=== PATIENT | male | born 1965 | race Caucasian/White ===

== ENCOUNTER 2017-03-05 08:12 | Observation (INO) | payer OTHER ==
[2017-03-05] VITALS (12 sets, daily range): BP systolic 108–137; BP diastolic 66–87; PULSE 68–78; RESP 16–20; TEMP 97.9–99; O2SAT 95–98
[~2017-03-05] VITALS: Ht 180.3 cm; Wt 124.0 kg
--- NOTE | 2017-03-05 08:16 | PD ---
HPI Chief Complaint: syncope Time Seen by Provider: 08:16 Travel History International Travel<30 days: No Contact w/Intl Traveler<30days: No Traveled to known affect area: No History of Present Illness HPI 51-year-old male came to the emergency room brought by EMS after he had a syncopal episode at work today. Patient is currently awake and is able to answer questions. He says that he has not been feeling well for past few days. He thinks he had a head cold and has been taking DayQuil and NyQuil for that. He has felt congested. This morning he was not feeling any better either but decided to go to work because there was a meeting. Prior to the meeting he had a large watery stool. When he was sitting at the meeting he started getting lightheaded and next thing he knows he was on the floor laying down and his coworkers were trying to take care of him. Eventually patient sat out but passed out again. This time they called EMS. When EMS arrived his blood pressure was 95 systolic. He received some fluid prior to coming to the emergency room. His blood pressure upon arrival was in 100s. He shouldn't says that he feels tired and run down. No chest pain or headache. He had one syncopal episode many years ago but otherwise has been healthy. No history of nausea vomiting. No blood in the stool. He has been having cold sweats during this past few days of his illness. Patient has history of hypertension and took his medications in the morning prior to going to work. PFSH Past Medical History Narrative Medical List of his past medical, surgical, social and family history is reviewed from the nursing note. Social History Tobacco Use: Yes Allergies-Medications (Allergen,Severity, Reaction): Coded Allergies: Sulfa (Sulfonamide Antibiotics) (Verified Allergy, Unknown, 03/05/17) cephalexin (Verified Allergy, Unknown, 03/05/17) Comments List of his allergies reviewed from the nursing note. Reported Meds & Prescriptions Reported Meds & Active Scripts Active Reported Triamterene-Hydrochlorothiazide 37.5-25 Mg Cap 1 Cap PO DAILY Lisinopril 40 Mg Tab 40 Mg PO BID Narrative Medication List of his home medications reviewed from the nursing note. Review of Systems Except as stated in HPI: all other systems reviewed are Neg Physical Exam Narrative GENERAL: Awake, alert, mild distress, obese SKIN: Focused skin assessment warm/dry. HEAD: Atraumatic. Normocephalic. EYES: Pupils equal and round. No scleral icterus. No injection or drainage. ENT: No nasal bleeding or discharge. Mucous membranes pink and moist. NECK: Trachea midline. No JVD. CARDIOVASCULAR: Regular rate and rhythm. No murmur appreciated. RESPIRATORY: No accessory muscle use. Clear to auscultation. Breath sounds equal bilaterally. GASTROINTESTINAL: Abdomen soft, non-tender, nondistended. Hepatic and splenic margins not palpable. MUSCULOSKELETAL: No obvious deformities. No clubbing. No cyanosis. No edema. NEUROLOGICAL: Awake and alert. No obvious cranial nerve deficits. Motor grossly within normal limits. Normal speech. PSYCHIATRIC: Appropriate mood and affect; insight and judgment normal. Data Data Last Documented VS Orders Orders Electrocardiogram (03/05/17 08:38) Basic Metabolic Panel (Bmp) (03/05/17 08:38) Ckmb (Isoenzyme) Profile (03/05/17 08:38) Complete Blood Count With Diff (03/05/17 08:38) Magnesium (Mg) (03/05/17 08:38) Prothrombin Time / Inr (Pt) (03/05/17 08:38) Act Partial Throm Time (Ptt) (03/05/17 08:38) Troponin I (03/05/17 08:38) Chest, Single Ap (03/05/17 08:38) Ecg Monitoring (03/05/17 08:38) Bilateral Bp Monitoring (03/05/17 08:38) Iv Access Insert/Monitor (03/05/17 08:38) Oximetry (03/05/17 08:38) Oxygen Administration (03/05/17 08:38) Sodium Chloride 0.9% Flush (Ns Flush) (03/05/17 08:45) Sodium Chlor 0.9% 1000 Ml Inj (Ns 1000 M (03/05/17 08:45) Orthostatic Vital Signs (03/05/17 08:38) Ct Brain W/O Iv Contrast(Rout) (03/05/17 ) Urinalysis - C+S If Indicated (03/05/17 08:38) D-Dimer (03/05/17 08:46) Blood Culture (03/05/17 09:56) Lactic Acid (03/05/17 09:56) Levofloxacin 500 Mg Premix Inj (Levaquin (03/05/17 10:00) Admit Order (Ed Use Only) (03/05/17 10:21) Labs Laboratory Tests Test 03/05/17 08:50 03/05/17 09:50 03/05/17 10:10 White Blood Count 13.0 TH/MM3 Red Blood Count 4.30 MIL/MM3 Hemoglobin 14.3 GM/DL Hematocrit 41.9 % Mean Corpuscular Volume 97.4 FL Mean Corpuscular Hemoglobin 33.4 PG Mean Corpuscular Hemoglobin Concent 34.3 % Red Cell Distribution Width 13.0 % Platelet Count 132 TH/MM3 Mean Platelet Volume 10.5 FL Neutrophils (%) (Auto) 79.3 % Lymphocytes (%) (Auto) 13.4 % Monocytes (%) (Auto) 6.7 % Eosinophils (%) (Auto) 0.4 % Basophils (%) (Auto) 0.2 % Neutrophils # (Auto) 10.3 TH/MM3 Lymphocytes # (Auto) 1.7 TH/MM3 Monocytes # (Auto) 0.9 TH/MM3 Eosinophils # (Auto) 0.0 TH/MM3 Basophils # (Auto) 0.0 TH/MM3 CBC Comment DIFF FINAL Differential Comment Prothrombin Time 11.4 SEC Prothromb Time International Ratio 1.0 RATIO Activated Partial Thromboplast Time 22.9 SEC D-Dimer Quantitative (PE/DVT) 0.29 MG/L FEU Blood Urea Nitrogen 16 MG/DL Creatinine 1.45 MG/DL Random Glucose 117 MG/DL Calcium Level 10.1 MG/DL Magnesium Level 1.8 MG/DL Sodium Level 138 MEQ/L Potassium Level 3.8 MEQ/L Chloride Level 104 MEQ/L Carbon Dioxide Level 25.8 MEQ/L Anion Gap 8 MEQ/L Estimat Glomerular Filtration Rate 51 ML/MIN Total Creatine Kinase 74 U/L Troponin I LESS THAN 0.02 NG/ML Urine Color YELLOW Urine Turbidity CLEAR Urine pH 6.5 Urine Specific Muddy 1.021 Urine Protein 30 mg/dL Urine Glucose (UA) NEG mg/dL Urine Ketones NEG mg/dL Urine Occult Blood NEG Urine Nitrite NEG Urine Bilirubin NEG Urine Urobilinogen LESS THAN 2.0 MG/DL Urine Leukocyte Esterase NEG Urine RBC 1 /hpf Urine WBC 1 /hpf Microscopic Urinalysis Comment CULT NOT INDICATED Lactic Acid Level 1.1 mmol/L MDM Medical Decision Making Medical Screen Exam Complete: Yes Emergency Medical Condition: Yes Medical Record Reviewed: Yes Interpretation(s) Twelve-lead EKG was reviewed by me. Normal sinus rhythm, normal axis, questionable type II Brugada syndrome. Heart rate of 67 bpm. Differential Diagnosis Orthostatic hypotension and syncope, Brugada syndrome, hypovolemic syncope Narrative Course 10:13 AM I discussed the case with Dr. Rodgers earlier after looking at the EKG. My concern was type II Brugada syndrome. However hearing the history he was not concerned from Brugada standpoint. He thought the symptoms were related to his preceding events which were mainly the infectious disease. He said he would be happy to consult if an order is put. Meanwhile blood test results came back and patient has some leukocytosis. Chest x-ray shows a developing infiltrate. Head CT was negative. I have given him a dose of Levaquin and IV fluid bolus. I discussed the case with the resident and they have accepted under the service. I discussed it with the patient and he is okay with admission at this point. Procedures EKG Prior to Arrival: Yes Physician Communication Physician Communication Dr. Rodgers Diagnosis Primary Impression: Syncope Qualified Codes: R55 - Syncope and collapse Additional Impressions: Pneumonia Qualified Codes: J18.1 - Lobar pneumonia, unspecified organism Dehydration questionable type II Brugada syndrome Admitting Information Admitting Physician Requests: Admit Beth Rose MD Mar 05, 2017 08:16
[2017-03-05] MEDS ORDERED: LISI40TA PO (08:33)
[2017-03-05] MEDS ORDERED: TRIA37.53 PO (08:34)
[2017-03-05] MEDS ORDERED: SODIUM CHLOR 0.9% 1000 ML INJ 1,000 ML IV ONE (08:45)
[2017-03-05] MEDS ORDERED: SODIUM CHLORIDE 0.9% FLUSH 10 ML FLUSH IVF PRN (08:45)
[2017-03-05 09:14] LABS: AUTOMATED NEUTROPHIL # 10.3 TH/MM3 (1.8-7.7); BASOPHIL % 0.2 % (0.0-2.0); EOSINOPHIL % 0.4 % (0.0-4.0); HEMATOCRIT 41.9 % (39.0-51.0); HEMO FLAGS DIFF FINAL; LYMPH % 13.4 % (9.0-44.0); LYMPHOCYTE # 1.7 TH/MM3 (1.0-4.8); MEAN CELL VOLUME 97.4 FL (80.0-100.0); MEAN CORPUSCULAR HEMOGLOBIN 33.4 PG (27.0-34.0); MEAN CORPUSCULAR HGB CONC 34.3 % (32.0-36.0); MONO % 6.7 % (0.0-8.0); NEUT % 79.3 % (16.0-70.0); PLATELET COUNT 132 TH/MM3 (150-450)
[2017-03-05 09:30] LABS: APTT (PATIENT) 22.9 SEC (24.3-30.1); PROTHROMBIN TIME - PATIENT 11.4 SEC (9.8-11.6)
[2017-03-05 09:35] LABS: ANION GAP 8 MEQ/L (5-15); BICARBONATE 25.8 MEQ/L (21.0-32.0); BLOOD UREA NITROGEN 16 MG/DL (7-18); CHLORIDE 104 MEQ/L (98-107); GLOMERULAR FILTRATION RATE 51 ML/MIN (>89); MAGNESIUM 1.8 MG/DL (1.5-2.5); POTASSIUM 3.8 MEQ/L (3.5-5.1); SODIUM (NA) 138 MEQ/L (136-145)
--- NOTE | 2017-03-05 09:44 | RADRPT ---
EXAM DATE/TIME: 03/05/2017 09:25 [facility] COMPARISON: No previous studies available for comparison. INDICATIONS : Multiple syncopal episodes today. RADIATION DOSE: 36.99 CTDIvol (mGy) MEDICAL HISTORY : Hypertension. Renal cell carcinoma. SURGICAL HISTORY : None. ENCOUNTER: Initial ACUITY: 1 day PAIN SCALE: 0/10 LOCATION: cranial TECHNIQUE: Multiple contiguous axial images were obtained of the head. Using automated exposure control and adj ustment of the mA and/or kV according to patient size, radiation dose was kept as low as reasonably a chievable to obtain optimal diagnostic quality images. DICOM format image data is available electro nically for review and comparison. FINDINGS: CEREBRUM: The ventricles are normal for age. No evidence of midline shift, mass lesion, hemorrhage or acute in farction. No extra-axial fluid collections are seen. POSTERIOR FOSSA: The cerebellum and brainstem are intact. The 4th ventricle is midline. The cerebellopontine angle i s unremarkable. EXTRACRANIAL: The visualized portion of the orbits is intact. SKULL: The calvaria is intact. No evidence of skull fracture. CONCLUSION: Normal examination. Yosef Aponte MD on March 05, 2017 at 9:42 Board Certified Radiologist. This report was verified electronically.
[2017-03-05 09:45] LABS: CREATINE KINASE 74 U/L (39-308)
--- NOTE | 2017-03-05 09:46 | RADRPT ---
EXAM DATE/TIME: 03/05/2017 09:02 [facility] COMPARISON: No previous studies available for comparison. INDICATIONS : Syncope. Cough. MEDICAL HISTORY : Hypertension. Smoker. Renal carcinoma. SURGICAL HISTORY : Nephrectomy, left. ENCOUNTER: Initial ACUITY: 3 days PAIN SCORE: 0/10 LOCATION: Bilateral chest FINDINGS: Minimal patchy opacities in the medial right lower lung zone and linear opacities at the left lung ba se. Cardiomediastinal contours are within normal limits. Bony thorax is intact. CONCLUSION: 1. Subtle patchy airspace disease in the medial right lower lung zone may reflect aspiration or devel oping pneumonia in the proper clinical setting. 2. Left lower lobe atelectasis. Jon Damon MD on March 05, 2017 at 9:35 Board Certified Radiologist. This report was verified electronically.
[2017-03-05] MEDS ORDERED: LEVOFLOXACIN 500 MG PREMIX INJ 100 ML IV ONE (10:00)
[2017-03-05 10:26] LABS: BLOOD, URINE NEG (NEG); COMMENT (UR) CULT NOT INDICATED; CULTURE IF INDICATED CULT NOT INDICATED; GLUCOSE,URINE NEG (NEG); KETONE, URINE NEG (NEG); NITRITE,URINE NEG (NEG); PH, URINE 6.5 (5.0-8.5); URINE COLOR YELLOW (YELLW/STRAW)
[2017-03-05] MEDS ORDERED: MAGNESIUM HYDROXIDE SUSP 30 ML CUP PO PRN (10:45)
[2017-03-05] MEDS ORDERED: ACETAMINOPHEN 325 MG TAB PO PRN (10:45)
[2017-03-05] MEDS ORDERED: SODIUM CHLORIDE 0.9% FLUSH 10 ML FLUSH IV FLUSH PRN (10:45)
[2017-03-05] MEDS ORDERED: cloNIDine HCL 0.2 MG TAB PO PRN (10:45)
[2017-03-05] MEDS ORDERED: NALOXONE HCL 0.4 MG/ML AMP IV PUSH PRN (10:45)
[2017-03-05] MEDS ORDERED: ONDANSETRON HCL 4 MG/2 ML VIAL IVP PRN (10:45)
[2017-03-05] MEDS ORDERED: TEMAZEPAM 15 MG CAP PO PRN (10:45)
[2017-03-05] MEDS: 1/2 NS + KCL 20 MEQ INJ 1,000 ML IV SCH (11:48)
[2017-03-05 15:40] LABS: C. DIFF EPI 027 PRESUMPTIVE NEGATIVE (NEGATIVE)
--- NOTE | 2017-03-05 16:46 | HHI.HP ---
HPI Service [facility] Hospitalists Primary Care Physician Dr. Radha German Admission Diagnosis syncope, dehydration, pneumonia Chief Complaint: Syncope Travel History International Travel<30 Days: No Contact w/Intl Traveler <30 Da: No Traveled to Known Affected Are: No History of Present Illness Mr. Carroll is a pleasant 51 y/o WM with HTN, tobacco use, CKD stage 3 and hx of RCC. He was brought to the ED at [facility] on 03/05 after two episodes of syncope this morning. Pt states that around 3 days ago he started having symptoms of a sore throat and sinus congestion and subjective fevers/chills. He started using OTC NyQuil. He took a dose of the NyQuil Sunday evening, Sunday evening and Sunday evening and then this morning he took a dose of DayQuil. Pt also has been using his Flonase. He states that he has not been eating and drinking as well as he normally does since he has been sick. This morning he had two bouts of diarrhea. He went to work this morning for a meeting and while sitting in the chair he started to feel like he was going to pass out, with lightheadedness , tunneled vision, ringing in his ears and feeling "tingly" all over. He did syncopize and when he awake his co-workers were surrounding him. [facility] had been called and when they arrived they tried to get him up to the chair and he again felt the same symptoms and had another syncopal episode. On the scene he was reportedly hypotensive with systolic BP in the 90's. He was given IVF enroute to the hospital and in the ED. Pts labs in the ED noted a mild leukocytosis with WBC count 13,000. His Creatinine was slightly higher than baseline at 1.45 and his outpt labs indicate his Cr has been around 1.3. He had a Head CT which was negative and a CXR in the ED which noted subtle patchy airspace disease in the medial right lower lung zone may reflect aspiration or developing pneumonia in the proper clinical setting and left lower lobe atelectasis. Pt denies any significant cough or chest congestion. He states that most of his symptoms are head/nasal congestion. Pt was given a dose of IV Levaquin in the ED and he was continued on IVF. In the ED his EKG was interpreted as possible type II Brugada syndrome. Dr. Rodgers was called by the ED physician and according to her notes, he thought the symptoms were related to the patients preceding events. Review of Systems Constitutional: COMPLAINS OF: Dizziness, Change in appetite Ears, nose, mouth, throat: COMPLAINS OF: Nasal discharge, Throat pain, Running Nose, Sinus Pain Respiratory: DENIES: Cough, Shortness of breath Cardiovascular: DENIES: Chest pain, Palpitations, Dyspnea on Exertion, Lower Extremity Edema Gastrointestinal: COMPLAINS OF: Diarrhea, DENIES: Abdominal pain, Nausea, Vomiting Genitourinary: DENIES: Hematuria, Dysuria Musculoskeletal: DENIES: Back pain, Neck pain Integumentary: DENIES: Rash Neurologic: DENIES: Headache Psychiatric: DENIES: Confusion Past Family Social History Past Medical History CKD, stage 3 Hx of diverticulitis, multiple episodes HTN Hyperlipidemia Obesity Tobacco use Hx of RCC in 2006 Past Surgical History Left nephrectomy in 2006 Knee surgery Reported Medications -Triamterene-Hydrochlorothiazide 37.5-25 Mg PO DAILY -Lisinopril 40 Mg PO BID Allergies: Coded Allergies: Sulfa (Sulfonamide Antibiotics) (Verified Allergy, Unknown, 03/05/17) cephalexin (Verified Allergy, Unknown, 03/05/17) Family History Mother from suspected GI malignancy and sepsis Father is still living Social History (+)Tobacco use, smokes 3/4 ppd for 25+ years Denies any regular alcohol use 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, 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 SKIN: No rashes, ecchymoses or lesions. Cool and dry. HEENT: Atraumatic. Normocephalic. No temporal or scalp tenderness. No scleral icterus. Mild throat erythema. Uvula midline. Airway patent. NECK: Trachea midline, supple, nontender. CARDIO: Regular. RESP: CTA bilaterally. No wheezes, rales, or rhonchi. ABD: +BS, soft, non-tender, nondistended. EXT: Extremities without clubbing, cyanosis, or edema. NEURO: Awake and alert. Motor and sensory grossly within normal limits. Normal speech. Laboratory Laboratory Tests Test 03/05/17 08:50 03/05/17 09:50 03/05/17 10:10 03/05/17 13:39 White Blood Count 13.0 Red Blood Count 4.30 Hemoglobin 14.3 Hematocrit 41.9 Mean Corpuscular Volume 97.4 Mean Corpuscular Hemoglobin 33.4 Mean Corpuscular Hemoglobin Concent 34.3 Red Cell Distribution Width 13.0 Platelet Count 132 Mean Platelet Volume 10.5 Neutrophils (%) (Auto) 79.3 Lymphocytes (%) (Auto) 13.4 Monocytes (%) (Auto) 6.7 Eosinophils (%) (Auto) 0.4 Basophils (%) (Auto) 0.2 Neutrophils # (Auto) 10.3 Lymphocytes # (Auto) 1.7 Monocytes # (Auto) 0.9 Eosinophils # (Auto) 0.0 Basophils # (Auto) 0.0 CBC Comment DIFF FINAL Differential Comment Prothrombin Time 11.4 Prothromb Time International Ratio 1.0 Activated Partial Thromboplast Time 22.9 D-Dimer Quantitative (PE/DVT) 0.29 Blood Urea Nitrogen 16 Creatinine 1.45 Random Glucose 117 Calcium Level 10.1 Magnesium Level 1.8 Sodium Level 138 Potassium Level 3.8 Chloride Level 104 Carbon Dioxide Level 25.8 Anion Gap 8 Estimat Glomerular Filtration Rate 51 Total Creatine Kinase 74 Troponin I LESS THAN 0.02 Urine Color YELLOW Urine Turbidity CLEAR Urine pH 6.5 Urine Specific Orient 1.021 Urine Protein 30 Urine Glucose (UA) NEG Urine Ketones NEG Urine Occult Blood NEG Urine Nitrite NEG Urine Bilirubin NEG Urine Urobilinogen LESS THAN 2.0 Urine Leukocyte Esterase NEG Urine RBC 1 Urine WBC 1 Microscopic Urinalysis Comment CULT NOT INDICATED Lactic Acid Level 1.1 Stool C. difficile Toxin (PCR) NEGATIVE Stl C. difficile Toxin Epiderm 027 PRESUMPTIVE NEGATIVE Date/Time Source Procedure Growth Status 03/05/17 10:10 Blood Peripheral Aerobic Blood Culture Pending Received 03/05/17 10:10 Blood Peripheral Anaerobic Blood Culture Pending Received 03/05/17 13:39 Stool Stool Cyclospora Exam - Final NO CYCLOSPORA SEEN Resulted 03/05/17 13:39 Stool Stool Cryptosporidium Exam Pending Resulted 03/05/17 13:39 Stool Stool Stool Pus (NIYAH) Pending Resulted 03/05/17 13:39 Stool Stool Giardia Antigen (NIYAH) Pending Resulted 03/05/17 13:39 Stool Stool Stool Occult Blood (NIYAH) - Final HEMOCCULT NEGATIVE Resulted Result Diagram: 03/05/17 0850 03/05/17 0850 Imaging Last Impressions Chest X-Ray 03/05/17 0838 Signed Impressions: Service Date/Time: Sunday, March 05, 2017 09:02 - CONCLUSION: 1. Subtle patchy airspace disease in the medial right lower lung zone may reflect aspiration or developing pneumonia in the proper clinical setting. 2. Left lower lobe atelectasis. Jon Damon MD Head CT 03/05/17 0000 Signed Impressions: Service Date/Time: Sunday, March 05, 2017 09:25 - CONCLUSION: Normal examination. Yosef Aponte MD Septic Shock Reassessment Heart: Regular rate and rhythm Lungs: Clear Skin: Warm Caprini VTE Risk Assessment Caprini VTE Risk Assessment: No/Low Risk (score <= 1) Caprini Risk Assessment Model Point Value = 1 Point Value = 2 Point Value = 3 Point Value = 5 Age 41-60 Minor surgery BMI > 25 kg/m2 Swollen legs Varicose veins or History of unexplained or recurrent spontaneous Oral contraceptives or hormone replacement Sepsis (< 1 month) Serious lung disease, including pneumonia (< 1 month) Abnormal pulmonary function Acute myocardial infarction Congestive heart failure (< 1 month) History of inflammatory bowel disease Medical patient at bed rest Age 61-74 Arthroscopic surgery Major open surgery (> 45 min) Laparoscopic surgery (> 45 min) Malignancy Confined to bed (> 72 hours) Immobilizing plaster cast Central venous access Age >= 75 History of VTE Family history of VTE Factor V Leiden Prothrombin [id number] Lupus anticoagulant Anticardiolipin antibodies Elevated serum homocysteine Heparin-induced thrombocytopenia Other congenital or acquired thrombophilia Stroke (< 1 month) Elective arthroplasty Hip, pelvis, or leg fracture Acute spinal cord injury (< 1 month) Prophylaxis Regimen Total Risk Factor Score Risk Level Prophylaxis Regimen 0-1 Low Early ambulation 2 Moderate Order ONE of the following: *Sequential Compression Device (SCD) *Heparin 5000 units SQ BID 3-4 Higher Order ONE of the following medications: *Heparin 5000 units SQ TID *Enoxaparin/Lovenox 40 mg SQ daily (WT < 150 kg, CrCl > 30 mL/min) *Enoxaparin/Lovenox 30 mg SQ daily (WT < 150 kg, CrCl > 10-29 mL/min) *Enoxaparin/Lovenox 30 mg SQ BID (WT < 150 kg, CrCl > 30 mL/min) AND/OR *Sequential Compression Device (SCD) 5 or more Highest Order ONE of the following medications: *Heparin 5000 units SQ TID (Preferred with Epidurals) *Enoxaparin/Lovenox 40 mg SQ daily (WT < 150 kg, CrCl > 30 mL/min) *Enoxaparin/Lovenox 30 mg SQ daily (WT < 150 kg, CrCl > 10-29 mL/min) *Enoxaparin/Lovenox 30 mg SQ BID (WT < 150 kg, CrCl > 30 mL/min) AND *Sequential Compression Device (SCD) Assessment and Plan Problem List: (1) Syncope ICD Codes: R55 - Syncope and collapse Status: Acute Plan: - Pt is a 51 y/o male with HTN, tobacco use, CKD, stage 3 and hx of RCC. - He was brought to the ED at [facility] on 03/05 after two episodes of syncope this morning. - Around 3 days ago he started having symptoms of a sore throat and sinus congestion and subjective fevers/chills. He started using OTC NyQuil each evening and then this morning he took a dose of DayQuil. He has not been eating and drinking as well as he normally does and this morning he had two bouts of diarrhea. - This morning while in a meeting at work he had lightheadedness, tunneled vision, ringing in his ears and feeling "tingly" all over and then had syncope. There was no reported seizure activity. [facility] had been called and when they arrived they tried to get him up to the chair and he again felt the same symptoms and had another syncopal episode. - On the scene he was reportedly hypotensive with systolic BP in the 90's. He was given IVF en route to the hospital and in the ED. - Labs in the ED noted a mild leukocytosis with WBC count 13,000. His Creatinine was slightly higher than baseline at 1.45 and his outpt labs indicate his Cr has been around 1.3. - He had a few episodes of diarrhea this morning, stool for C. diff are negative. - Head CT which was negative - CXR --> subtle patchy airspace disease in the medial right lower lung zone may reflect aspiration or developing pneumonia in the proper clinical setting and left lower lobe atelectasis. - Pt was given a dose of IV Levaquin in the ED and he was continued on IVF. - Pts syncope was likely vasovagal related to his acute illness and dehydration but in the ED his EKG was interpreted as possible type II Brugada syndrome. We will consult Dr. Rodgers to r/o possible Brugada syndrome as a cause for his syncope - Cont. IVF and supportive care - Pt does not have any increased cough or sputum production - Flonase - Encourage oral intake - DVT prophylaxis with SCDs (2) Dehydration ICD Codes: E86.0 - Dehydration Status: Acute Plan: - See above. (3) Acute worsening of stage 3 chronic kidney disease ICD Codes: N18.3 - Chronic kidney disease, stage 3 (moderate) Status: Acute Plan: - Likely secondary to dehydration - Repeat labs in AM - Encourage oral intake (4) HTN (hypertension) ICD Codes: I10 - Essential (primary) hypertension Status: Chronic Plan: - Home meds held due to hypotension and JAMESON/CKD - Monitor - Clonidine PRN (5) Tobacco abuse ICD Codes: Z72.0 - Tobacco use Status: Chronic Plan: - Pt declines nicotine patch - Discussed tobacco cessation Assessment and Plan Patient examined. Assessment and plan formulated with Amirah Sosa PA-C. I agree with the above. Problem Qualifiers (1) Syncope: Qualified Codes: R55 - Syncope and collapse (2) HTN (hypertension): Qualified Codes: I10 - Essential (primary) hypertension Amirah Sosa Mar 05, 2017 16:46 Gavin Chi DO Mar 10, 2017 00:07
[2017-03-05] MEDS ORDERED: FLUTICASONE PROPIONATE 50 MCG/ACT 16 GM NASAL SPRAY NASAL ONE (17:15)
[2017-03-05] MEDS ORDERED: diphenhydrAMINE HCL 25 MG CAP PO PRN (18:00)
[2017-03-05] MEDS: FLUTICASONE PROPIONATE 50 MCG/ACT 16 GM NASAL SPRAY EACH NARE SCH (18:37)
[2017-03-05] MEDS: SODIUM CHLORIDE 0.9% FLUSH 10 ML FLUSH IV FLUSH SCH (21:00)
[2017-03-06] VITALS (8 sets, daily range): BP systolic 130–144; BP diastolic 68–84; PULSE 65–75; RESP 18–21; TEMP 97.9–98.6; O2SAT 95–97
[2017-03-06] MEDS: 1/2 NS + KCL 20 MEQ INJ 1,000 ML IV SCH ×3 (04:29→16:45)
[2017-03-06 04:36] LABS: AUTOMATED NEUTROPHIL # 7.5 TH/MM3 (1.8-7.7); BASOPHIL % 0.3 % (0.0-2.0); EOSINOPHIL # 0.1 TH/MM3 (0-0.4); EOSINOPHIL % 1.1 % (0.0-4.0); HEMATOCRIT 40.8 % (39.0-51.0); HEMO FLAGS DIFF FINAL; LYMPHOCYTE # 1.7 TH/MM3 (1.0-4.8); MEAN CELL VOLUME 96.6 FL (80.0-100.0); MEAN CORPUSCULAR HEMOGLOBIN 33.5 PG (27.0-34.0); MEAN CORPUSCULAR HGB CONC 34.7 % (32.0-36.0); MONO % 9.8 % (0.0-8.0); NEUT % 72.8 % (16.0-70.0); PLATELET COUNT 145 TH/MM3 (150-450); RED BLOOD COUNT 4.22 MIL/MM3 (4.50-5.90); RED CELL DISTRIBUTION WIDTH 12.9 % (11.6-17.2); WHITE BLOOD COUNT 10.4 TH/MM3 (4.0-11.0)
[2017-03-06 04:45] LABS: MAGNESIUM 1.7 MG/DL (1.5-2.5); POTASSIUM 4.1 MEQ/L (3.5-5.1)
[2017-03-06] MEDS: SODIUM CHLORIDE 0.9% FLUSH 10 ML FLUSH IV FLUSH SCH (09:00)
[2017-03-06] MEDS: FLUTICASONE PROPIONATE 50 MCG/ACT 16 GM NASAL SPRAY EACH NARE SCH (09:08)
[2017-03-06] MEDS ORDERED: INFLUENZA VIRUS VACCINE (QUADRIVALENT) 0.5 ML SYR IM ONE (10:00)
--- NOTE | 2017-03-06 11:54 | EKG ---
Date Performed: 03/05/2017 Time Performed: 08:40:35 PTAGE: 51 years EKG: Normal Sinus rhythm Anteroseptal ST elevation, cannot exclude brugada syndrome Slight nonspecific ST elevation laterally Clinical correlation needed. NO PREVIOUS TRACING DOCTOR: Jaleel Keene Interpretating Date/Time 03/06/2017 11:52:59
--- NOTE | 2017-03-06 16:05 | HHI.PR ---
Subjective Remarks Pt feeling much better today and is anxious to go home Pt was seen by Dr. Rodgers who did not feel that the pt has Brugada Syndrome and has cleared the patient for discharge. Objective Vitals Vital Signs Date Time Temp Pulse Resp B/P (MAP) Pulse Ox O2 Delivery O2 Flow Rate FiO2 03/06/17 15:32 98.6 75 20 130/68 (88) 97 03/06/17 12:12 70 03/06/17 08:10 65 03/06/17 07:56 98.6 70 21 144/84 (104) 96 03/06/17 04:09 97.9 75 18 134/81 (98) 96 03/06/17 04:00 66 03/06/17 01:01 66 03/06/17 00:57 98.4 74 18 134/82 (99) 95 03/05/17 20:00 78 03/05/17 19:43 97.9 76 16 135/78 (97) 95 03/05/17 16:19 68 03/05/17 16:18 98.4 69 20 137/87 (104) 96 Result Diagram: 03/06/17 0352 03/06/17 0352 Other Results Laboratory Tests Test 03/05/17 08:50 03/05/17 09:50 03/05/17 10:10 03/05/17 13:39 White Blood Count 13.0 TH/MM3 Red Blood Count 4.30 MIL/MM3 Hemoglobin 14.3 GM/DL Hematocrit 41.9 % Mean Corpuscular Volume 97.4 FL Mean Corpuscular Hemoglobin 33.4 PG Mean Corpuscular Hemoglobin Concent 34.3 % Red Cell Distribution Width 13.0 % Platelet Count 132 TH/MM3 Mean Platelet Volume 10.5 FL Neutrophils (%) (Auto) 79.3 % Lymphocytes (%) (Auto) 13.4 % Monocytes (%) (Auto) 6.7 % Eosinophils (%) (Auto) 0.4 % Basophils (%) (Auto) 0.2 % Neutrophils # (Auto) 10.3 TH/MM3 Lymphocytes # (Auto) 1.7 TH/MM3 Monocytes # (Auto) 0.9 TH/MM3 Eosinophils # (Auto) 0.0 TH/MM3 Basophils # (Auto) 0.0 TH/MM3 CBC Comment DIFF FINAL Differential Comment Prothrombin Time 11.4 SEC Prothromb Time International Ratio 1.0 RATIO Activated Partial Thromboplast Time 22.9 SEC D-Dimer Quantitative (PE/DVT) 0.29 MG/L FEU Blood Urea Nitrogen 16 MG/DL Creatinine 1.45 MG/DL Random Glucose 117 MG/DL Calcium Level 10.1 MG/DL Magnesium Level 1.8 MG/DL Sodium Level 138 MEQ/L Potassium Level 3.8 MEQ/L Chloride Level 104 MEQ/L Carbon Dioxide Level 25.8 MEQ/L Anion Gap 8 MEQ/L Estimat Glomerular Filtration Rate 51 ML/MIN Total Creatine Kinase 74 U/L Troponin I LESS THAN 0.02 NG/ML Urine Color YELLOW Urine Turbidity CLEAR Urine pH 6.5 Urine Specific [place] 1.021 Urine Protein 30 mg/dL Urine Glucose (UA) NEG mg/dL Urine Ketones NEG mg/dL Urine Occult Blood NEG Urine Nitrite NEG Urine Bilirubin NEG Urine Urobilinogen LESS THAN 2.0 MG/DL Urine Leukocyte Esterase NEG Urine RBC 1 /hpf Urine WBC 1 /hpf Microscopic Urinalysis Comment CULT NOT INDICATED Lactic Acid Level 1.1 mmol/L Stool C. difficile Toxin (PCR) NEGATIVE Stl C. difficile Toxin Epiderm 027 PRESUMPTIVE NEGATIVE Test 03/06/17 03:52 White Blood Count 10.4 TH/MM3 Red Blood Count 4.22 MIL/MM3 Hemoglobin 14.1 GM/DL Hematocrit 40.8 % Mean Corpuscular Volume 96.6 FL Mean Corpuscular Hemoglobin 33.5 PG Mean Corpuscular Hemoglobin Concent 34.7 % Red Cell Distribution Width 12.9 % Platelet Count 145 TH/MM3 Mean Platelet Volume 9.9 FL Neutrophils (%) (Auto) 72.8 % Lymphocytes (%) (Auto) 16.0 % Monocytes (%) (Auto) 9.8 % Eosinophils (%) (Auto) 1.1 % Basophils (%) (Auto) 0.3 % Neutrophils # (Auto) 7.5 TH/MM3 Lymphocytes # (Auto) 1.7 TH/MM3 Monocytes # (Auto) 1.0 TH/MM3 Eosinophils # (Auto) 0.1 TH/MM3 Basophils # (Auto) 0.0 TH/MM3 CBC Comment DIFF FINAL Differential Comment Blood Urea Nitrogen 18 MG/DL Creatinine 1.30 MG/DL Random Glucose 102 MG/DL Calcium Level 9.9 MG/DL Magnesium Level 1.7 MG/DL Sodium Level 139 MEQ/L Potassium Level 4.1 MEQ/L Chloride Level 106 MEQ/L Carbon Dioxide Level 27.0 MEQ/L Anion Gap 6 MEQ/L Estimat Glomerular Filtration Rate 58 ML/MIN Imaging Last Impressions Chest X-Ray 03/05/17 0838 Signed Impressions: Service Date/Time: Sunday, March 05, 2017 09:02 - CONCLUSION: 1. Subtle patchy airspace disease in the medial right lower lung zone may reflect aspiration or developing pneumonia in the proper clinical setting. 2. Left lower lobe atelectasis. Jon Damon MD Head CT 03/05/17 0000 Signed Impressions: Service Date/Time: Sunday, March 05, 2017 09:25 - CONCLUSION: Normal examination. Yosef Aponte MD Objective Remarks General: NAD, AAOx3 Chest: CTA Cardiac: Regular Abd: +BS, soft ND/NT Ext: No edema A/P Problem List: (1) Syncope ICD Codes: R55 - Syncope and collapse Status: Acute Plan: - Pt is a 51 y/o male with HTN, tobacco use, CKD, stage 3 and hx of RCC. - He was brought to the ED at [facility] on 03/05 after two episodes of syncope this morning. - Around 3 days ago he started having symptoms of a sore throat and sinus congestion and subjective fevers/chills. He started using OTC NyQuil each evening and then this morning he took a dose of DayQuil. He has not been eating and drinking as well as he normally does and this morning he had two bouts of diarrhea. - This morning while in a meeting at work he had lightheadedness, tunneled vision, ringing in his ears and feeling "tingly" all over and then had syncope. There was no reported seizure activity. [facility] had been called and when they arrived they tried to get him up to the chair and he again felt the same symptoms and had another syncopal episode. - On the scene he was reportedly hypotensive with systolic BP in the 90's. He was given IVF en route to the hospital and in the ED. - Labs in the ED noted a mild leukocytosis with WBC count 13,000. His Creatinine was slightly higher than baseline at 1.45 and his outpt labs indicate his Cr has been around 1.3. - He had a few episodes of diarrhea this morning, stool for C. diff are negative. - Head CT which was negative - CXR --> subtle patchy airspace disease in the medial right lower lung zone may reflect aspiration or developing pneumonia in the proper clinical setting and left lower lobe atelectasis. - Pt was given a dose of IV Levaquin in the ED and he was continued on IVF. - Pts syncope was likely vasovagal related to his acute illness and dehydration but in the ED his EKG was interpreted as possible type II Brugada syndrome. - Dr. Rodgers evaluated the pt today and did NOT feel that the pts EKG findings were consistent with Brugada syndrome as a cause for his syncope, he felt that it was more related to dehydration - Pt overall feeling better today - Pt does not have any increased cough or sputum production - Cont. Flonase - Pt is stable for discharge to home. - He can followup with his PCP, Dr. Antunez, in 1 week - We will also have the pt followup with [facility], for outpt stress testing given his hx of tobacco use and chronic HTN (2) Dehydration ICD Codes: E86.0 - Dehydration Status: Acute Plan: - See above. (3) Acute worsening of stage 3 chronic kidney disease ICD Codes: N18.3 - Chronic kidney disease, stage 3 (moderate) Status: Acute Plan: - Likely secondary to dehydration - Repeat labs today are improved - Encourage oral intake (4) HTN (hypertension) ICD Codes: I10 - Essential (primary) hypertension Status: Chronic Plan: - Home meds held due to hypotension and JAMESON/CKD - Monitor - Clonidine PRN (5) Tobacco abuse ICD Codes: Z72.0 - Tobacco use Status: Chronic Plan: - Pt declines nicotine patch - Discussed tobacco cessation Assessment and Plan Patient examined. Assessment and plan formulated with Amirah Sosa PA-C. I agree with the above. Problem Qualifiers (1) Syncope: Qualified Codes: R55 - Syncope and collapse (2) HTN (hypertension): Qualified Codes: I10 - Essential (primary) hypertension Amirah Sosa Mar 06, 2017 16:05 Gavin Chi DO Mar 10, 2017 00:07
--- NOTE | 2017-03-06 16:10 | HHI.DCPOC ---
Discharge Care Plan Diagnosis: (1) Syncope (2) Dehydration (3) HTN (hypertension) (4) Acute worsening of stage 3 chronic kidney disease (5) Tobacco abuse Goals to Promote Your Health * To prevent worsening of your condition and complications * To maintain your health at the optimal level Directions to Meet Your Goals Take your medications as prescribed Follow your dietary instruction Follow activity as directed Keep your appointments as scheduled Take your immunizations and boosters as scheduled If your symptoms worsen call your PCP, if no PCP go to Urgent Care Center or Emergency Room Smoking is Dangerous to Your Health. Avoid second hand smoke Call the 24-hour hour crisis hotline for domestic abuse at Amirah Sosa Mar 06, 2017 16:09 Gavin Chi DO Mar 10, 2017 00:08
--- NOTE | 2017-03-06 17:48 | MB ---
cc: JOSUE CHI HANSCY DATE OF CONSULTATION 03/06/17 REASON FOR CONSULTATION Syncopal episode. HISTORY OF PRESENT ILLNESS Mr. Carroll is a 51-year-old gentleman with morbid obesity, high blood pressure, smokes three-quarter pack of cigarette a day for the past 25 years, history of renal disease admitted through the emergency room yesterday due to syncopal episode. The gentleman was having the flu for the past couple of days. He took Nyquil. Also, the gentleman was having diarrhea. He has not been drinking and eating and went to work. While sitting, he passed out. He was brought to the emergency room where he was admitted. Hydration was initiated. Systolic blood pressure initially was 90. There was some change in the electrocardiogram. I was consulted for evaluation and management. The chart was reviewed. The patient was evaluated. ALLERGIES SULFA CEPHALEXIN SOCIAL HISTORY As mentioned before, smokes three-quarter pack of cigarettes a day, drinks on a regular basis. FAMILY HISTORY Noncontributory to his current medical condition. MEDICATIONS At home, 1. Triametere hydrochlorothiazide 2. Lisinopril. 3. Zofran was added during the hospitalization. REVIEW OF SYSTEMS Currently, he refers no chest pain, no chest discomfort. No syncopal episode. No vomiting. No fever. PHYSICAL EXAMINATION GENERAL: Alert, fully oriented. VITAL SIGNS: Blood pressure 130/68, pulse 75, respiratory 18. LUNGS: Ventilated. CARDIOVASCULAR: S1-S2, no gallop or murmur. ABDOMEN: Obese. No mass. No bruit. EXTREMITIES: No edema. CARDIOLOGY STUDIES Electrocardiogram shows sinus rhythm. No active ST and T-wave changes. There is some ST changes in V1, but this is not brugada pattern. LABORATORY DATA Hemoglobin is 14.1, white blood cell 10.4, creatinine is 1.3, potassium 4.1, troponin less than 0.02. ASSESSMENT AND RECOMMENDATIONS Mr. Carroll remembers passing out once when he was [age] years old. The gentleman was taking blood pressure medication. He has dizziness. He has a cold. He was not eating and drinking. He had diarrhea. His syncopal episode most likely due to dehydration and the illness he was experiencing. There is some change in V1 but not significantly in V2. This is not clearly brugada. The gentleman does not even need a flecainide challenge. At this point, my recommendation is observation. The gentleman was here for the past 24 hours. No significant QT prolongation observed. His medication was resumed. His blood pressure is adequate. The gentleman can be discharged home whenever it is okay with the managing team. I discussed the case extensively yesterday night with the ER doctor and also with Dr. Chi today. I will see him on a p.r.n. basis. MD CAMPOS Treviño/ /5:04 PM /5:22 PM
== END 2017-03-06 17:51 | disposition home or self-care (01) ==
LOC: NEPC 08:12 → NEDA 10:25 → NEPFCDU 12:07
PROVIDERS: ADMIT Hospitalist; ATTEND Hospitalist
DX: R55 Syncope and collapse (principal); E86.0 Dehydration; N18.3 Chronic kidney disease, stage 3 (moderate); I12.9 Hypertensive chronic kidney disease with stage 1 through stage 4 chronic kidney disease, or unspecified chronic kidney disease; F17.210 Nicotine dependence, cigarettes, uncomplicated; R19.7 Diarrhea, unspecified; E78.5 Hyperlipidemia, unspecified; E66.01 Morbid (severe) obesity due to excess calories; Z68.38 Body mass index [BMI] 38.0-38.9, adult; Z85.528 Personal history of other malignant neoplasm of kidney; Z23 Encounter for immunization
CPT/HCPCS: 70450; 71010; 80048; 81001; 82272; 82550; 83605; 83735; 84484; 85025; 85379; 85610; 85730; 87040; 87205; 87207; 87328; 87329; 87493; 87506; 93005; 96361; 96365; 97161; 99285; G0008; G0378; G8987; G8988; J1956; J7030; Q2038; 90471; 90686